=== PATIENT | female | born 1990 | race Caucasian/White ===

== ENCOUNTER 2017-02-17 12:17 | Inpatient (IN) | payer MEDICAID ==
[~2017-02-17] VITALS: Ht 165.1 cm; Wt 104.8 kg
[2017-02-17] MEDS ORDERED: DEXT 5%/LR + PITOCIN 20UNITS/L 1,000 ML IV SCH (12:45)
[2017-02-17] MEDS ORDERED: MISOPROSTOL 100MCG TABLET VG SCH (12:45)
[2017-02-17] MEDS ORDERED: LACTATED RINGERS 1,000 ML IV SCH (12:45)
[2017-02-17] MEDS ORDERED: METHYLERGONOVINE MALEATE 0.2 MG/ML IM PRN (12:45)
[2017-02-17] MEDS ORDERED: PNV1TABL76 PO (12:59)
[2017-02-17 13:26] LABS: CLARITY URINE CLOUDY (CLEAR); COLOR URINE YELLOW (YELLOW); GLUCOSE URINE NEGATIVE (NEGATIVE); KETONES URINE TRACE (NEGATIVE); LEUKOCYTE ESTERASE URINE NEGATIVE (NEGATIVE); NITRITE URINE NEGATIVE (NEGATIVE); OCCULT BLOOD URINE TRACE (NEGATIVE); PROTEIN URINE TRACE (NEGATIVE); SPECIFIC GRAVITY URINE 1.026 (1.005-1.030); UROBILINOGEN URINE 0.2 E.U./dL (0.2-1.0)
[2017-02-17 13:31] LABS: BASOPHILS % 0.6 % (0.0-2.0); EOSINOPHILS % 0.3 % (0.0-5.0); HEMATOCRIT. 37.2 % (36.0-48.0); HEMOGLOBIN. 12.6 g/dL (12.0-16.0); LYMPHOCYTES % 15.3 % (20.0-50.0); MEAN CORPUSCULAR HEMOGLOBIN 29.1 pg (28.0-32.0); MEAN CORPUSCULAR VOLUME 85.9 fL (81.0-99.0); MEAN PLATELET VOLUME 10.9 fl (7.4-10.4); MONOCYTES % 4.3 % (2.0-8.0); NEUTROPHILS % 79.5 % (40.0-76.0); PLATELET 144 x1000/uL (130-400); RED BLOOD CELL COUNT 4.33 mill/uL (4.2-5.4); RED CELL DISTRIBUTION WIDTH 15.1 % (11.6-14.6)
[2017-02-17 13:34] LABS: INR 0.9; PROTHROMBIN TIME 9.4 sec (9.4-11.6)
[2017-02-17] MEDS ORDERED: EPHEDRINE SULFATE 50MG/ML VIAL ONE (13:50)
[2017-02-17] MEDS ORDERED: ONDANSETRON HCL 4MG/2ML VIAL ONE (13:50)
[2017-02-17] MEDS ORDERED: CEFAZOLIN SODIUM 1000MG/VIAL ONE (13:50)
[2017-02-17] MEDS ORDERED: OXYTOCIN 10 UNITS/ML 1ML ONE (13:50)
[2017-02-17] MEDS ORDERED: SODIUM CHLORIDE 0.9% 10ML VIAL ONE (13:50)
[2017-02-17 13:53] LABS: *AMPHETAMINES SCREEN URINE NEGATIVE (NEGATIVE); *BARBITURATES SCREEN URINE NEGATIVE (NEGATIVE); *BENZODIAZEPINES SCREEN URINE NEGATIVE (NEGATIVE); *COCAINE SCREEN URINE NEGATIVE (NEGATIVE); CANNABINOID URINE SCREEN NEGATIVE (NEGATIVE); METHADONE URINE SCREEN NEGATIVE (NEGATIVE); OPIATES URINE SCREEN NEGATIVE (NEGATIVE); PHENCYCLIDINE URINE SCREEN NEGATIVE (NEGATIVE)
[2017-02-17] MEDS ORDERED: MORPHINE SULFATE/PF 1MG/ML 10ML AMP ONE (13:54)
[2017-02-17] MEDS ORDERED: FENTANYL CITRATE/PF 50MCG/ML 2ML VIAL ONE (13:54)
[2017-02-17 14:45] LABS: HEPATITIS B SURFACE ANTIGEN NEGATIVE; RUBELLA IGG 88.6 IU/mL (4.99-10)
[2017-02-17] MEDS ORDERED: KETOROLAC 60MG/2ML VIAL IM ONE (15:51)
[2017-02-17] MEDS ORDERED: HYDROMORPHONE HCL/PF 2MG/ML CPJ IM PRN (16:15)
[2017-02-17] MEDS ORDERED: RHO(D) IMMUNE GLOBULIN 300 MCG/SYR IM PRN (16:15)
[2017-02-17] MEDS ORDERED: BISACODYL 10MG SUPP PR PRN (16:15)
[2017-02-17] MEDS ORDERED: IBUPROFEN 400MG TABLET PO PRN (16:15)
[2017-02-17] MEDS ORDERED: BUTORPHANOL TARTRATE 2 MG/ML VIAL IV PRN (16:30)
[2017-02-17] MEDS ORDERED: ONDANSETRON HCL 4MG/2ML VIAL IV PRN (16:30)
[2017-02-17] MEDS ORDERED: DIPHENHYDRAMINE 50MG/ML VIAL IV PRN (16:30)
[2017-02-17] MEDS ORDERED: NALOXONE HCL 0.4 MG/ML 1ML VIAL IV PRN (16:30)
[2017-02-17 18:10] VITALS: BP 123/66
[2017-02-17] MEDS: DEXT 5%/LR + PITOCIN 20UNITS/L 1,000 ML IV SCH (18:21)
[2017-02-17 18:37] VITALS: BP 117/67
[2017-02-17 20:00] VITALS: BP 117/72
[2017-02-17] MEDS: KETOROLAC 30MG/ML VIAL IV PRN (21:41)
[2017-02-17 23:55] VITALS: BP 105/66
[2017-02-18] MEDS: DEXT 5%/LR + PITOCIN 20UNITS/L 1,000 ML IV SCH (00:53)
[2017-02-18 05:59] VITALS: BP 114/68
[2017-02-18 07:32] VITALS: BP 115/66
[2017-02-18] MEDS: KETOROLAC 30MG/ML VIAL IV PRN (08:34)
[2017-02-18 08:44] LABS: BASOPHILS % 0.3 % (0.0-2.0); EOSINOPHILS % 0.5 % (0.0-5.0); HEMATOCRIT. 31.1 % (36.0-48.0); HEMOGLOBIN. 10.5 g/dL (12.0-16.0); LYMPHOCYTES % 24.1 % (20.0-50.0); MEAN CORPUSCULAR HEMOGLOBIN 29.3 pg (28.0-32.0); MEAN CORPUSCULAR VOLUME 87.1 fL (81.0-99.0); MEAN PLATELET VOLUME 10.5 fl (7.4-10.4); MONOCYTES % 6.5 % (2.0-8.0); NEUTROPHILS % 68.6 % (40.0-76.0); PLATELET 122 x1000/uL (130-400); RED BLOOD CELL COUNT 3.57 mill/uL (4.2-5.4); RED CELL DISTRIBUTION WIDTH 14.7 % (11.6-14.6)
[2017-02-18] MEDS: IBUPROFEN 800MG TABLET PO PRN ×2 (15:59→22:31)
[2017-02-18 16:02] VITALS: BP 121/73
[2017-02-18 20:00] VITALS: BP 96/56
[2017-02-19] VITALS: BP 117/68
[2017-02-19 04:00] VITALS: BP 100/56
[2017-02-19] MEDS: IBUPROFEN 800MG TABLET PO PRN ×3 (07:34→22:03)
[2017-02-19 08:00] VITALS: BP 123/69
[2017-02-19] MEDS: HYDROCODONE/ACETAMINOPHEN 5/325MG TABLET PO PRN ×3 (09:44→22:04)
[2017-02-19 16:00] VITALS: BP 139/82
[2017-02-19 19:40] VITALS: BP 136/78
[2017-02-19 22:00] VITALS: BP 123/79
[2017-02-20 04:00] VITALS: BP 128/80
[2017-02-20 05:58] VITALS: BP 133/72
[2017-02-20] MEDS: IBUPROFEN 800MG TABLET PO PRN ×2 (05:58→12:43)
[2017-02-20] MEDS: HYDROCODONE/ACETAMINOPHEN 5/325MG TABLET PO PRN ×2 (05:59→12:42)
[2017-02-20 08:00] VITALS: BP 119/64
[2017-02-20 12:43] VITALS: BP 119/64
== END 2017-02-20 13:45 | disposition home or self-care (01) | DRG 540 ==
LOC: OBSVTOIN 12:17 → L&D 12:17 → 7EST PP/OB 17:58
PROVIDERS: ADMIT Obstetrics & Gynecology; ATTEND Obstetrics & Gynecology
PROC: 10D00Z1 Extraction of Products of Conception, Low, Open Approach (ICD-10-PCS; principal; 2017-02-17 16:12)
DX: O34.211 Maternal care for low transverse scar from previous cesarean delivery (principal); D64.9 Anemia, unspecified; O99.03 Anemia complicating the puerperium; O77.0 Labor and delivery complicated by meconium in amniotic fluid; Z37.0 Single live birth; Z3A.40 40 weeks gestation of pregnancy
CPT/HCPCS: 36415; 80305; 81001; 85025; 85610; 85730; 86592; 86703; 86762; 86850; 86900; 87340; 88307; A4216; J0171; J0690; J1885; J2274; J2405; J2590; J3010; J7120; A4315

== ENCOUNTER 2018-10-06 07:08 | Observation (INO) | payer MEDICAID ==
[~2018-10-06] VITALS: Ht 165.1 cm; Wt 108.9 kg
[2018-10-06] MEDS ORDERED: PREN-52 MT (08:41)
[2018-10-06 08:56] LABS: CLARITY URINE CLEAR (CLEAR); COLOR URINE YELLOW (YELLOW); KETONES URINE NEGATIVE (NEGATIVE); LEUKOCYTE ESTERASE URINE NEGATIVE (NEGATIVE); NITRITE URINE NEGATIVE (NEGATIVE); OCCULT BLOOD URINE TRACE (NEGATIVE); PH URINE 5.5 (4.5-8.0); PROTEIN URINE NEGATIVE (NEGATIVE); SPECIFIC GRAVITY URINE 1.008 (1.005-1.030); UROBILINOGEN URINE 0.2 E.U./dL (0.2-1.0)
[2018-10-06] MEDS ORDERED: LACTATED RINGERS 1,000 ML IV SCH (09:45)
[2018-10-06] MEDS ORDERED: ACETAMINOPHEN 500MG TABLET PO SCH (12:15)
== END 2018-10-06 13:15 | disposition home or self-care (01) ==
LOC: 8 EST LDRP 07:08
PROVIDERS: ADMIT Obstetrics & Gynecology; ATTEND Obstetrics & Gynecology
DX: O26.893 Other specified pregnancy related conditions, third trimester (principal); R10.9 Unspecified abdominal pain; Z3A.35 35 weeks gestation of pregnancy
CPT/HCPCS: 81003; 99281; G0378; 96360; 96361